=== PATIENT | female | born 1995 | race Caucasian/White ===

== ENCOUNTER 2021-12-04 08:57 | Inpatient (IN) ==
--- NOTE | 2021-12-03 17:13 | History & Physical Report ---
Date of Service December 03, 2021 Assessment & Plan (1) Breech presentation: (2) Second degree AV block, Mobitz type I: Plan -Discussed options for ECV, primary CS. Discussed risks for ECV including rom, placental abruption, distress resulting in urgent delivery, stillbirth. Discussed likely low success rates given GA. Discussed indications, risks, benefits, alternatives with risks including infection, bleeding, injury to adjacent structures (bowel, bladder, ureters, blood vessels, nerves, baby), possible need for blood transfusion and/or life saving hysterectomy, VTE. -After extensive discussion pt would like to try for an ECV with understanding of likely success rate. Will plan to complete in the OR so able to move forward with CS if unsuccessful at that time. If successful, can induce following. -CS consent reviewed in detail w/ pt and signed after all questions answered to her satisfaction. Will sign ECV consent tomorrow on arrival after confirming presentation. Ample time given for questions, answered to apparent satisfaction History of Present Illness Chief Complaint: Breech presentation Primary Care Provider: Quyen Barry MD 26 y/o G1 at 40 1/7 wga presented for joseph today and found to be breech. She reported feeling a big movement last week and subsequent change in position, found to be breech on US today by [employer]. She was counseled regarding ECV, primary CS and desires attempt at ECV if possible w/ planned CS following if unsuccessful. 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 Hx: G1 12/2020 neg cyto denies hx STIs Allergies Allergy/AdvReac Type Severity Reaction Status Date / Time No Known Allergies Allergy Verified 12/03/21 12:55 Patient History Medical History Asthma Cystic fibrosis carrier Impetigo Left lower quadrant pain Overweight (BMI 25.0-29.9) Surgical History Hx of wisdom tooth extraction Family History Mother Depression Anxiety Kidney stones Malignant neoplasm of cervix uteri, unspecified site Father Hypercholesterolemia Sister Anxiety Depression Denies family history of Ovarian cancer Prostate cancer Myocardial infarction Breast cancer Colorectal cancer Social History Smoking Status: Never smoker Hx Alcohol Use: No Hx Substance Use: No Preferred Language: Kinyarwanda Communication Ability: Effective marital status: marital status details: Jay Gutierrez [phone] Current Living Situation: Spouse Current Living Situation Comment: FOB and 1 cat (FOB changing litter) current occupational status: employed current occupation: [employer] - [place] Feels Safe at Home: Yes caffeine: Yes Dental Care, Regularly: Yes Physical Activity Frequency: 3-4 Times per Week Seatbelt Use: always Sunscreen Use: Yes Physical Exam Constitutional: WD/WN, vitals as above Respiratory: normal respiratory effort; no respiratory distress and no labored breathing Genitourinary: OB Exam Abdomen: + heart tones (NST reactive per [employer]CR[employer]) and + breech Results & Data ([facility]) Laboratory Results OB Labs: Blood Type A Positive 04/30/21 Antibody Screen NEGATIVE 04/30/21 Hemoglobin 11.9 g/dL (12.0-16.0) L 09/11/21 Hematocrit 35.2 % (37-47) L 09/11/21 Mean Corpuscular Volume 95.4 fL (80-100) 07/30/21 Platelet Count 249 K/uL (130-400) 07/30/21 Varicella-Zoster IgG Antibody 544.80 index 04/30/21 Rubella IgG Antibody Immune (Immune) 04/30/21 Rapid Plasma Reagin Nonreactive (Nonreactive) 04/30/21 Hepatitis B Surface Antigen Neg (Neg) 04/30/21 Hepatitis C Antibody Neg (Neg) 04/30/21 HIV (1&2) Ab and P24 Ag, 4th Gener Neg (Neg) 04/30/21 Glucose 1 Hour 50 gm Load 100 mg/dl (70-130) 09/11/21 OB Optional Labs: Chlamydia trachomatis RNA NOT DETECTED (NOT DETECTED) 04/30/21 Neisseria gonorrhoeae RNA NOT DETECTED (NOT DETECTED) 04/30/21 Thyroid Stimulating Hormone (TSH) 0.485 uIu/ml (0.300-4.500) 07/30/21 Labs Reviewed: Declines cfdna--mln [facility] 05/29/20-carrier for CFTR mutation; FOB positive CSF carrier--mln [facility] 05/09/21-negative for sma/csf--mln Declines msafp--mln GBS neg Diagnostic Findings 12/03 DVP 7, breech, no obvious nuchal seen, anterior placenta Coding Level of Care Code None Diagnoses Breech presentation O32.1XX0 Second degree AV block, Mobitz type I I44.1
[2021-12-04] MEDS ORDERED: LACTATED RINGER'S 1,000 ML IV SCH ×2 (09:30→14:00)
[2021-12-04] MEDS ORDERED: ceFAZolin 2000MG 2,000 MG/15 ML SYR IV SCH (09:35)
[2021-12-04 09:51] LABS: Hematocrit (blood only) 33.2 % (34.1-44.9); Hemoglobin 11.7 g/dl (12.0-16.0); Mean Corpuscular Hemoglobin 31.9 pg (25.0-34.0); Mean Corpuscular Hgb Conc 35.2 g/dL (32.0-36.0); Mean Corpuscular Volume 90.5 fL (80.0-100.0); RDW Coefficient of Variation 11.7 % (11.5-14.5); RDW Standard Deviation 38.7 fL (36.4-46.3); Red Blood Count 3.67 M/uL (3.93-5.22); White Blood Count 5.06 K/ul (4.8-10.8)
--- NOTE | 2021-12-04 10:00 | Anesthesiology Consultation ---
Date of Service December 04, 2021 Assessment & Plan (1) Encounter for pre-operative examination: Chart Review Chart Review: Acceptable Risk for Surgery and Acceptable Risk for Labor Epidural History Surgery Operation Date: 12/04/21 10:00 Proposed Procedures p Section in LD (Delivery of Baby through Abdominal Incision) - Enma Haney MD Height/Weight Height: 5 ft 7 in Weight: 97.069 kg Allergies Allergy/AdvReac Type Severity Reaction Status Date / Time No Known Allergies Allergy Verified 12/03/21 12:55 Medications Home Medications Medication Instructions Recorded Confirmed Last Taken cetirizine 10 mg tablet (Zyrtec) 10 mg PO DAILY 03/27/20 12/03/21 Unknown fluticasone propionate 110 1 puff inhalation BID #3 Inhalers 03/28/20 12/03/21 Unknown mcg/actuation HFA aerosol inhaler (Flovent HFA) albuterol sulfate 90 mcg/actuation 1 - 2 puff inhalation Q4H PRN 05/29/20 12/03/21 Unknown aerosol inhaler (Ventolin HFA) asthma #54 grams prenat.vits,soni,mbm-oozl-toweu 1 tab PO DAILY 04/21/21 12/03/21 Unknown magnesium PO 04/30/21 12/03/21 Unknown riboflavin (vitamin B2) PO 04/30/21 12/03/21 Unknown Past Medical History Medical History Asthma Cystic fibrosis carrier Overweight (BMI 25.0-29.9) Past Family History Family History Mother Depression Anxiety Kidney stones Malignant neoplasm of cervix uteri, unspecified site Father Hypercholesterolemia Sister Anxiety Depression Denies family history of Ovarian cancer Prostate cancer Myocardial infarction Breast cancer Colorectal cancer Past Surgical History Surgical History Hx of wisdom tooth extraction Social History Smoking Status: Never smoker Do You Dip or Chew Tobacco: No Hx Alcohol Use: No Hx Substance Use: No Physical Exam Vital Signs Last Vital Signs Temp 36.7 C 12/04/21 09:18 Pulse 75 12/04/21 09:56 Resp 18 12/04/21 09:18 BP 127/80 12/04/21 09:22 Pulse Ox 98 12/04/21 09:56 Testing Laboratory Results 12/04/21 09:30 Echocardiogram Date: 10/15/21 EF: 55-60% LV Function: normal Valvular Disease: + no significant valvular disease
[2021-12-04 10:47] LABS: Basophils # (auto) 0.02 K/uL (0-0.2); Basophils % (auto) 0.4 %; Eosinophils # (auto) 0.06 K/uL (0-0.50); Eosinophils % (auto) 1.2 %; Immature Granulocytes # (auto) 0.01 K/uL (0.00-0.02); Immature Granulocytes % (auto) 0.2 %; Lymphocytes # (auto) 1.19 K/uL (1.2-3.4); Lymphocytes % (auto) 23.5 %; Mean Platelet Volume 13.5 fL (9.4-12.3); Monocytes # (auto) 0.42 K/uL (0.24-0.82); Monocytes % (auto) 8.3 %; Neutrophils # (auto) 3.36 K/uL (1.4-6.5); Neutrophils % (auto) 66.4 %; Platelet Count 150 K/uL (130-400)
[2021-12-04] MEDS ORDERED: LIDOCAINE 2%/EPINEPHRINE 1:200,000 20 ML SDV ONE ×2 (11:29→12:55)
[2021-12-04] MEDS ORDERED: ePHEDrine sulfate 50 MG/ML AMP ONE (11:29)
[2021-12-04] MEDS ORDERED: SODIUM CHLORIDE 0.9% INJ 10 ML VIAL ONE ×3 (11:29→12:55)
[2021-12-04] MEDS ORDERED: fentaNYL citrate 100 MCG/2 ML VIAL ONE (11:29)
[2021-12-04] MEDS ORDERED: BUPIVACAINE 0.25% 30 ML VIAL ONE (11:29)
[2021-12-04] MEDS ORDERED: fentaNYL 2MCG/ML ROPIVACAINE 1.25MG/ML 100 ML BAG EPI ONE (11:30)
--- NOTE | 2021-12-04 12:15 | Obstetrical Progress Note ---
Date of Service December 04, 2021 Assessment & Plan (1) Breech presentation: Plan: -breech presentation confirmed on BSUS and pt desires to try for ECV with plan for CS if unsuccessful. Informed written consent obtained after all questions answered. Admission and Anticipated Discharge Date Admission Date: December 04, 2021 Subjective Pt presented this AM for attempt at version with plan for CS if unsuccessful. +FM; deneis regular ctx, LOF, VB Physical Exam Genitourinary: OB Exam Abdomen: + breech OB Exam Monitor Tracing: + external FHT monitor used, + external uterine monitor used and + category I (1 30/mod/+accel/-decel) Results & Data ([facility]) Vital Signs (Past 12 Hours) Vital Signs Temp Pulse Resp BP Pulse Ox 12/04/21 12:08 70 99 12/04/21 12:03 68 100 12/04/21 12:01 69 143/97 H 12/04/21 11:59 72 137/92 12/04/21 11:58 82 100 12/04/21 11:57 71 135/89 12/04/21 11:55 76 136/87 12/04/21 11:53 76 138/95 99 12/04/21 11:51 74 137/90 12/04/21 11:49 68 135/86 12/04/21 11:48 72 98 12/04/21 11:47 65 143/88 H 12/04/21 11:45 70 150/88 H 12/04/21 11:43 74 99 12/04/21 11:38 76 100 12/04/21 11:37 62 154/98 H 12/04/21 11:33 69 99 12/04/21 11:28 66 99 12/04/21 11:23 66 99 12/04/21 11:18 67 98 12/04/21 11:13 66 99 12/04/21 11:08 75 99 12/04/21 11:01 67 99 12/04/21 10:56 65 98 12/04/21 10:51 70 99 12/04/21 10:46 76 99 12/04/21 10:41 71 98 12/04/21 10:36 74 98 12/04/21 10:31 72 99 12/04/21 10:26 73 99 12/04/21 10:21 63 100 12/04/21 10:16 67 98 12/04/21 10:11 81 98 12/04/21 10:06 75 98 12/04/21 10:01 86 97 12/04/21 09:56 75 98 12/04/21 09:51 77 98 12/04/21 09:22 76 127/80 12/04/21 09:18 98.1 F 18 PG Care Time/CCT Total # of Minutes Spent Total Time Spent with Patient: Total time spent is greater than 50% in coordination of care (as documented) at patient's floor/unit and/or counseling patient: Coding Level of Care Code None Diagnoses Breech presentation O32.1XX0
[2021-12-04] MEDS ORDERED: CITRIC ACID/SODIUM CITRATE 15 ML UDC PO ONE (12:16)
[2021-12-04] MEDS ORDERED: CITRIC ACID/SODIUM CITRATE 15 ML UDC ONE (12:17)
[2021-12-04] MEDS ORDERED: MoRPHine SULFATE PF 1 MG/ML 10 ML AMP/VIAL ONE (12:17)
--- NOTE | 2021-12-04 12:19 | Procedure Note ---
Procedure Note Date of Service December 04, 2021 Note Epidural was obtained prior to procedure. Informed consent previously obtained. Reactive NST was obtained breech was elevated out of the pelvis and a forward somersault roll was initiated however unable to have forward progression. A reverse roll was then performed which had some progression but was unable to progress head out of the upper quadrants. At this time, procedure was terminated. EFM reapplied, pt tolerated well. Coding CPT Codes Misx Procedure Codes - 06606 External cephalic version: 01541 External cephalic version ([id number]) [facility] Procedure Codes (Charges) Misx Procedure Codes 70824 External cephalic version
--- NOTE | 2021-12-04 12:20 | History & Physical Bridge Note ---
Date of Service December 04, 2021 History & Physical Bridge Note I have examined the patient, reviewed the History & Physical and in the interval since the performance of the History & Physical I have noted the following changes of clinical significance: ECV unsuccessful, will proceed with primary CS. Consent previously signed, all questions answered
[2021-12-04] MEDS ORDERED: ePHEDrine sulfate 50 MG/ML AMP IV PRN (12:52)
[2021-12-04] MEDS ORDERED: ONDANSETRON INJ 2 MG/ML 2 ML VIAL IV PRN ×2 (12:52→14:00)
[2021-12-04] MEDS ORDERED: KETOROLAC 30 MG/ML VIAL IV PRN (12:52)
[2021-12-04] MEDS ORDERED: MoRPHine SULFATE 2 MG/ML CARP IV PRN (12:52)
[2021-12-04] MEDS ORDERED: LACTATED RINGER'S 500 ML IV PRN (12:52)
[2021-12-04] MEDS ORDERED: NALOXONE HCL 0.4 MG/1 ML VIAL/CARP IV PRN (12:52)
[2021-12-04] MEDS ORDERED: NALOXONE HCL 1 MG in SODIUM CHLORIDE 0.9% 1000ML 1,000 ML IV PRN (12:52)
[2021-12-04] MEDS ORDERED: diphenhydrAMINE 50 MG/ML VIAL IV PRN (12:52)
[2021-12-04] MEDS ORDERED: NALBUPHINE HCL INJ 10 MG/ML AMP IV PRN (12:52)
[2021-12-04] MEDS ORDERED: PROMETHAZINE HCL 12.5 MG in SODIUM CHLORIDE 0.9% 50 ML IV PRN (12:52)
[2021-12-04] MEDS ORDERED: MoRPHine SULFATE PF 1 MG/ML 10 ML AMP/VIAL EPI ONE (12:52)
[2021-12-04] MEDS ORDERED: NALOXONE HCL 0.08 MG in SYRINGE 1.8 ML IV PRN (12:52)
[2021-12-04] MEDS ORDERED: OXYTOCIN 10 UNITS/ML 10ML VIAL ONE (12:55)
[2021-12-04] MEDS ORDERED: ONDANSETRON INJ 2 MG/ML 2 ML VIAL ONE (12:55)
[2021-12-04] MEDS ORDERED: NO NARCOTICS OR SEDATIVES SCH (13:00)
[2021-12-04] MEDS ORDERED: SODIUM CHLORIDE 0.9% 1000ML 1,000 ML IV SCH (13:00)
[2021-12-04] MEDS ORDERED: METOCLOPRAMIDE HCL INJ 5 MG/ML 2 ML VIAL ONE (13:28)
--- NOTE | 2021-12-04 13:57 | Operative Report ---
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 Viable male infant with APGARs of 8 and 9, weight pending Fluids 300cc UOP by ruiz cath Specimens Cord blood, placenta Drains Ruiz draining clear urine Anesthesia Type L&D Only Epidural Exists Complications none Disposition Accompanied Patient To Recovery: Yes Disposition: L&D Indications 26 y/o G1 at 40 2/7 wga presented this AM for external cephalic version attempt after finding breech presentation yesterday. ECV was unsuccessful and so will proceed with primary CS. Description of Procedure The patient was taken to the operating room after consents were ensured. The patient was properly identified. Spinal anesthesia was obtained without difficulty. The patient was placed in a dorsal supine position with left lateral tilt, then prepped and draped in normal sterile fashion. Surgical time out was performed. Antibiotics were given for prophylaxis. Anesthesia was tested to ensure adequate surgical levels. Pfannenstiel skin incision was performed and carried down to the underlying fascia with a knife. The fascia was then nicked in the midline and extended laterally with pickups and Gill scissors. Superior portion of the fascia was grasped with Kochers x2 and elevated off the underlying rectus muscles using blunt dissection. Inferior portion of the fascia was then grasped with Erica clamps x2 and also elevated off the underlying muscles with blunt dissection. Midline was identified. The peritoneum was then entered and extended to provide adequate room for delivery of baby. A hand was inserted into the abdomen, uterus was noted to be clear of adhesions. Bladder blade was inserted, bladder flap was created in the usual fashion. A low transverse uterine incision was made in the uterus and extended bluntly in a superior to inferior fashion. Amniotomy was made with clear fluid at the time of rupture. breech was elevated to the hysterotomy and delivered atraumatically with fundal pressure to the level of the scapula. A moist blue towel was wrapped around the torso and the arms were swept across the chest atraumatically. head then delivered with MSV maneuver. Nose and mouth were bulb suctioned on the surgical field. The cord was double clamped and cut, baby was handed off to awaiting pediatrics staff. Cord segment and blood were obtained. Placenta was then expressed from the uter us. The uterus was exteriorized. Several passes were made inside the uterus to remove the remaining membranes. Attention was then turned to the hysterotomy, which was then closed with a running locked suture of 0 Vicryl on a CTX needle. An imbricating layer was then performed using 0-Monocryl. There was noted to be good hemostasis. The posterior cul-de-sac was then inspected and cleaned of clot and debris. The hysterotomy was again inspected and noted to be hemostatic. The uterus was returned to the abdomen. The right and left pericolic gutters were cleaned of all clot and debris. The hysterotomy was again noted to be hemostatic. Space of Retzius was noted to be hemostatic. The fascia was then closed with a running suture of 0 Vicryl on a CT1 needle. Subcutaneous tissue was copiously irrigated and noted to be hemostatic. Subcutaneous tissue was re-approximated using 2-0 plain gut. The skin was then closed with a running suture of 3-0 Monocryl in a subcuticular fashion. At termination of the procedure, fundal pressure was applied and a moderate amount of lochia was expressed. Pressure dressing was applied to the patient. She tolerated the procedure well. All sponge, needle, instrument counts were correct x 2. I attest to the content of the Intraoperative Record and any orders documented therein. Any exceptions are noted below. OB Procedure Charges 92678
[2021-12-04] MEDS ORDERED: DIPHTHERIA/TETANUS/PERTUSSIS 0.5 ML SYR/VIAL IM ONE (14:00)
[2021-12-04] MEDS ORDERED: ALBUTEROL HFA 8 GM INHALER INH PRN (14:00)
[2021-12-04] MEDS ORDERED: MAGNESIUM HYDROXIDE SUSP 30 ML UDC PO PRN (14:00)
[2021-12-04] MEDS ORDERED: SENNA 8.6 MG TAB PO PRN (14:00)
[2021-12-04] MEDS ORDERED: OXYTOCIN 20 UNITS in LACTATED RINGER'S 1,000 ML IV SCH (14:00)
[2021-12-04] MEDS ORDERED: BENZOCAINE 20% AER SPR 82.5 GM CAN EXT PRN (14:00)
[2021-12-04] MEDS ORDERED: HYDROCORTISONE ACETATE 25 MG SUPP PR PRN (14:00)
--- NOTE | 2021-12-04 16:04 | Anesthesiology Progress Note ---
Date of Service December 04, 2021 Anesthesia Post Procedure Vital Signs Vital Signs: Temp Pulse Resp BP Pulse Ox 12/04/21 15:15 18 12/04/21 14:45 20 12/04/21 14:45 36.7 C 20 12/04/21 14:35 18 12/04/21 14:25 18 12/04/21 14:15 18 12/04/21 14:05 18 12/04/21 13:55 18 12/04/21 15:59 99 12/04/21 15:59 67 12/04/21 15:59 63 119/78 12/04/21 15:54 71 99 12/04/21 15:49 74 128/79 98 12/04/21 15:44 67 98 12/04/21 15:39 68 99 12/04/21 15:34 80 99 12/04/21 15:29 67 99 12/04/21 15:24 70 100 12/04/21 15:19 71 100 12/04/21 15:14 78 110/76 99 12/04/21 15:09 69 99 12/04/21 15:04 72 118/73 100 12/04/21 14:27 73 108/55 L 12/04/21 14:15 82 93 12/04/21 14:14 100 12/04/21 14:14 71 12/04/21 14:14 71 121/76 12/04/21 14:09 77 100 12/04/21 14:07 75 116/66 12/04/21 14:05 85 93 12/04/21 14:04 74 100 12/04/21 13:59 74 100 12/04/21 13:54 69 132/60 99 12/04/21 13:53 73 91 12/04/21 13:49 75 100 12/04/21 13:44 100 12/04/21 13:44 75 12/04/21 13:44 76 140/70 12/04/21 12:28 62 99 12/04/21 12:23 66 99 12/04/21 12:22 85 143/98 H 12/04/21 12:18 66 99 12/04/21 12:13 72 99 12/04/21 12:12 67 140/96 12/04/21 12:08 70 99 12/04/21 12:03 68 100 12/04/21 12:01 69 143/97 H 12/04/21 11:59 72 137/92 12/04/21 11:58 82 100 12/04/21 11:57 71 135/89 12/04/21 11:55 76 136/87 12/04/21 11:53 76 138/95 99 12/04/21 11:51 74 137/90 12/04/21 11:49 68 135/86 12/04/21 11:48 72 98 12/04/21 11:47 65 143/88 H 12/04/21 11:45 70 150/88 H 12/04/21 11:43 74 99 12/04/21 11:38 76 100 12/04/21 11:37 62 154/98 H 12/04/21 11:33 69 99 12/04/21 11:28 66 99 12/04/21 11:23 66 99 12/04/21 11:18 67 98 12/04/21 11:13 66 99 12/04/21 11:08 75 99 12/04/21 11:01 67 99 12/04/21 10:56 65 98 12/04/21 10:51 70 99 12/04/21 10:46 76 99 12/04/21 10:41 71 98 12/04/21 10:36 74 98 12/04/21 10:31 72 99 12/04/21 10:26 73 99 12/04/21 10:21 63 100 12/04/21 10:16 67 98 12/04/21 10:11 81 98 12/04/21 10:06 75 98 12/04/21 10:01 86 97 12/04/21 09:56 75 98 12/04/21 09:51 77 98 12/04/21 09:22 76 127/80 12/04/21 09:18 36.7 C 18 Transfer of Care Handoff Completed per policy Notes Mental Status: alert / awake / arousable Patient Amnestic to Procedure: Yes Nausea / Vomiting: adequately controlled Pain: adequately controlled Airway Patency, RR, SpO2: stable & adequate BP & HR: stable & adequate Hydration State: stable & adequate Anesthetic Complications: no major complications apparent
--- NOTE | 2021-12-04 16:04 | Anesthesia Procedure Note ---
Date of Service December 04, 2021 Anesthesia Post Epidural Note Vital Signs Vital Signs: Temp Pulse Resp BP Pulse Ox 36.7 C 67 18 119/78 99 12/04/21 14:45 12/04/21 15:59 12/04/21 15:15 12/04/21 15:59 12/04/21 15:59 Notes Mental Status: alert / awake / arousable and participated in evaluation Nausea / Vomiting: adequately controlled Pain: adequately controlled Airway Patency, RR, SpO2: stable & adequate BP & HR: stable & adequate Hydration State: stable & adequate Neuraxial Anesthesia: was administered and sensory block is resolving Anesthetic Complications: no major complications apparent Epidural: Removed without complications and With tip intact
[2021-12-04] MEDS: SIMETHICONE 80 MG CHEW PO SCH ×2 (17:57→22:56)
[2021-12-04] MEDS ORDERED: FLUTICASONE HFA 110MCG INHALER INH SCH (21:00)
[2021-12-04] MEDS: DOCUSATE SODIUM 100 MG CAP PO SCH (22:56)
[2021-12-05] MEDS ORDERED: diphenhydrAMINE 50 MG/ML VIAL IV PRN (07:05)
[2021-12-05] MEDS ORDERED: diphenhydrAMINE Capsule 25 MG CAP PO PRN (07:05)
[2021-12-05] MEDS ORDERED: oxyCODONE/ACETAMINOPHEN 5mg/325mg TAB PO PRN (07:05)
[2021-12-05] MEDS ORDERED: PROMETHAZINE HCL 25 MG in SODIUM CHLORIDE 0.9% 50 ML IV PRN (07:05)
[2021-12-05] MEDS ORDERED: KETOROLAC 30 MG/ML VIAL IV PRN (07:05)
[2021-12-05] MEDS ORDERED: DC INTRASPINAL MORPHINE SCH (07:05)
[2021-12-05 07:15] LABS: Basophils # (auto) 0.02 K/uL (0-0.2); Basophils % (auto) 0.3 %; Eosinophils # (auto) 0.04 K/uL (0-0.50); Eosinophils % (auto) 0.6 %; Hematocrit (blood only) 27.9 % (34.1-44.9); Hemoglobin 9.8 g/dl (12.0-16.0); Immature Granulocytes # (auto) 0.01 K/uL (0.00-0.02); Immature Granulocytes % (auto) 0.1 %; Lymphocytes # (auto) 1.43 K/uL (1.2-3.4); Lymphocytes % (auto) 21.3 %; Mean Corpuscular Hemoglobin 31.9 pg (25.0-34.0); Mean Corpuscular Hgb Conc 35.1 g/dL (32.0-36.0); Mean Corpuscular Volume 90.9 fL (80.0-100.0); Mean Platelet Volume 12.6 fL (9.4-12.3); Monocytes % (auto) 7.5 %; Neutrophils % (auto) 70.2 %; Platelet Count 133 K/uL (130-400); RDW Coefficient of Variation 11.8 % (11.5-14.5); RDW Standard Deviation 38.6 fL (36.4-46.3); Red Blood Count 3.07 M/uL (3.93-5.22)
--- NOTE | 2021-12-05 07:18 | Obstetrical Progress Note ---
Date of Service <Miah CancinoMonika Daniel - Last Filed: 12/05/21 07:19> December 05, 2021 Assessment & Plan <Miah CancinoMonika Daniel - Last Filed: 12/05/21 07:19> (1) Encounter for care and examination after delivery: (2) Status post section: Plan - Feels well today - Pain well controlled without the need of any medication. Will keep current prn meds. - Routine care -- OOB, ambulation, diet progression as tolerated - Will remove Ruiz today and have patient increase ambulation as tolerated - After discharge will have 6 week follow-up with Dr. Haney. <Enma Haney MD - Last Filed: 12/05/21 07:48> (1) Encounter for care and examination after delivery: (2) Status post section: Subjective <Miah CancinoMonika Praneethdaylin - Last Filed: 12/05/21 07:19> Ambulation: limited ambulation Voiding: ruiz catheter in place Passing Gas:: Yes Diet Tolerance:: nausea/vomiting Lochia:: Small Feeding Type:: bottle feeding Current Pain Level(1-10): 0 Patient is a 26 y/o female who is POD #1 following delivery at 40 weeks. She reports feeling well overall this morning. No abdominal cramping & 0/10 pain well managed with the need of analgesics. Ruiz catheter in place. Having some N/V with meals last night. Seen bedside this AM and is able to tolerate little bit of food and will try to eat again today. No current nausea or vomiting. Has not ambulate but plans on to today. Able to pass gas and no bowel movement. Has some persistent lochia with some improvement this morning. Currently bottle feeding. Review of Systems Denies fever, chills, sweats Denies shortness of breath, difficulty breathing, chest pain, palpitations, chest pressure. Denies breast pain. Denies dysuria. Denies headache or changes in vision. Physical Exam <Miah CancinoMonika DanielDO - Last Filed: 12/05/21 07:19> General: Alert, oriented. No acute distress. Cardiac: Regular rate and rhythm, no murmurs/rubs/gallops. Respiratory: Clear to auscultation bilaterally a/p, no wheezes/rales/rhonchi. No increased work of breathing. Symmetrical chest rise. No respiratory distress. Abdomen: Soft, nontender, nondistended. Bowel sounds present. Uterus: Uterine fundus firm, palpable 4 cm below umbilicus. Lower Extremities: No lower extremity edema or swelling. No deep calf pain. Alaina's negative bilaterally. Results & Data ([facility]) <Miah Sanchez DO - Last Filed: 12/05/21 07:19> Vital Signs (Past 12 Hours) Vital Signs Temp Pulse Resp BP Pulse Ox O2 Del Method 12/05/21 06:20 16 97 12/05/21 05:30 16 95 12/05/21 04:40 16 95 12/05/21 03:25 18 96 12/05/21 03:25 36.6 C 73 18 117/71 96 Room Air 12/05/21 03:00 16 95 12/05/21 02:05 16 95 12/05/21 01:40 16 94 12/05/21 00:30 16 95 12/04/21 23:40 16 95 12/04/21 23:40 36.9 C 76 16 117/72 95 Room Air 12/04/21 22:40 16 96 12/04/21 20:05 16 98 12/04/21 21:25 16 95 12/04/21 21:25 36.7 C 76 16 120/75 95 Room Air <Enma Haney MD - Last Filed: 12/05/21 07:48> Co-Signing Physician Notes Resident Physician Supervision Note: I interviewed and examined the patient. Discussed with Dr. Sanchez and agree with findings and plan as documented in the note. Any exceptions or clarifications are listed here: 26 y/o POD1 s/p pLTCS, doing well. VSS, exam benign, dressing c/d/i. Will remove ruiz, increase ambulation today. Continue rout pp care Documented By: Enma Haney MD Resident Activity Tracking <Miah Sanchez DO - Last Filed: 12/05/21 07:19> Resident Involvement: Resident Care Provided Care Provided: OB Delivery
[2021-12-05] MEDS: SIMETHICONE 80 MG CHEW PO SCH ×4 (08:19→20:05)
[2021-12-05] MEDS: PRENATAL VITAMIN 1 TAB PO SCH (08:21)
[2021-12-05] MEDS: DOCUSATE SODIUM 100 MG CAP PO SCH ×2 (08:21→20:05)
[2021-12-05] MEDS: FERROUS SULFATE 325 MG TAB PO SCH (08:21)
[2021-12-05] MEDS: FLUTICASONE FUROATE 100MCG 14 PUFFS/INHALER INH SCH (10:54)
[2021-12-05] MEDS: CETIRIZINE HCL 10 MG TABLET PO SCH (10:55)
[2021-12-05] MEDS ORDERED: bisacodyL 5 MG TABEC PO SCH (20:00)
[2021-12-05] MEDS: IBUPROFEN 600 MG TAB PO PRN (20:22)
[2021-12-06 06:55] LABS: Hematocrit (blood only) 25.8 % (34.1-44.9); Hemoglobin 9.1 g/dl (12.0-16.0)
--- NOTE | 2021-12-06 07:42 | Obstetrical Progress Note ---
Date of Service <Miah Sanchez DO - Last Filed: 12/06/21 07:42> December 06, 2021 Assessment & Plan <Miah Sanchez DO - Last Filed: 12/06/21 07:42> (1) Encounter for care and examination after delivery: (2) Status post section: Plan - Feels well today - Pain well controlled without the need of any medication. Will keep current prn meds. - Routine care -- OOB, ambulation, diet progression as tolerated - Faith removed yesterday and patient is urinating well on her own. - After discharge will have 6 week follow-up with Dr. Haney. <Harriet Brown MD, FACOG - Last Filed: 12/06/21 08:52> (1) Encounter for care and examination after delivery: (2) Status post section: Subjective <Miah Sanchez DO - Last Filed: 12/06/21 07:42> Ambulation: ambulating normally Voiding: no voiding problems Passing Gas:: Yes Diet Tolerance:: regular diet Lochia:: Small Feeding Type:: bottle feeding Current Pain Level(1-10): 0 Patient is a 26 y/o female who is POD #2 following delivery at 40 weeks. She reports feeling well overall this morning. No abdominal cramping & 0/10 pain well managed with the need of analgesics. Voiding well. Tolerating meals overnight and able to ambulate some. Able to pass gas and has had a normal bowel movement. Has some persistent lochia with some improvement this morning. Currently bottle feeding. Physical Exam <Miah Sanchez DO - Last Filed: 12/06/21 07:42> General: Alert, oriented. No acute distress. Cardiac: Regular rate and rhythm, no murmurs/rubs/gallops. Respiratory: Clear to auscultation bilaterally a/p, no wheezes/rales/rhonchi. No increased work of breathing. Symmetrical chest rise. No respiratory distress. Abdomen: Soft, nontender, nondistended. Bowel sounds present. Uterus: Uterine fundus firm, palpable 4 cm below umbilicus. Lower Extremities: No lower extremity edema or swelling. No deep calf pain. Alaina's negative bilaterally. Results & Data ([facility]) <Miah Sanchez DO - Last Filed: 12/06/21 07:42> Vital Signs (Past 12 Hours) Vital Signs Temp Pulse Resp BP Pulse Ox O2 Del Method 12/05/21 20:00 36.8 C 81 16 117/78 97 Room Air <Harriet Brown MD, FACOG - Last Filed: 12/06/21 08:52> Co-Signing Physician Notes Resident Physician Supervision Note: I was present with Dr. Sanchez during the history and exam. I discussed the case with the resident and agree with the findings and plan as documented in the note. Any exceptions or clarifications are listed here: [None] Documented By: Harriet Brown MD, FACOG Resident Activity Tracking <Miah Sanchez DO - Last Filed: 12/06/21 07:42> Resident Involvement: Resident Care Provided Care Provided: OB Delivery
[2021-12-06] MEDS: DOCUSATE SODIUM 100 MG CAP PO SCH (08:42)
[2021-12-06] MEDS: FERROUS SULFATE 325 MG TAB PO SCH (08:42)
[2021-12-06] MEDS: IBUPROFEN 600 MG TAB PO PRN (08:42)
[2021-12-06] MEDS: SIMETHICONE 80 MG CHEW PO SCH ×2 (08:42→12:24)
[2021-12-06] MEDS: PRENATAL VITAMIN 1 TAB PO SCH (08:42)
[2021-12-06] MEDS: FLUTICASONE FUROATE 100MCG 14 PUFFS/INHALER INH SCH (08:43)
[2021-12-06] MEDS: CETIRIZINE HCL 10 MG TABLET PO SCH (08:43)
[2021-12-06] MEDS ORDERED: bisacodyL 10 MG SUPP PR PRN (13:43)
--- NOTE | 2021-12-08 08:23 | Discharge Summary ---
Date of Service December 08, 2021 Admission Exam (Per Admitting) Constitutional WD/WN, vitals as above Respiratory normal respiratory effort; no respiratory distress and no labored breathing Genitourinary OB Exam Abdomen: + heart tones (NST reactive per CLAIMS CLERK) and + breech OB Exam Monitor Tracing: + external FHT monitor used, + external uterine monitor used and + category I (130/mod/+accel/-decel) Discharge Data Consultations 12/04/21 09:20 Consult Anesthesiology Stat Procedures Performed Operation Date: 12/04/21 10:00 Actual Procedures p Section in LD (Delivery of Baby through Abdominal Incision) of live male child in OR - Enma Haney MD Hospital Course (1) Encounter for care and examination after delivery: (2) Status post section: Plan 26 y/o G1 at 40 2/7 wga presented this AM for external cephalic version attempt after finding breech presentation yesterday. ECV was unsuccessful and so will proceed with primary CS, see procedure and operative report for details. Post- operative course was uncomplicated and she was discharged home on POD2 Coding Level of Care Code None Diagnoses Encounter for care and examination after delivery Z39.2 Status post section Z98.891
== END 2021-12-06 16:18 | disposition home or self-care (01) | DRG 788 ==
LOC: 4S1 08:57 → EDSTATUS 10:00 → 4E2 16:30